=== PATIENT | female | born 1990 | race Caucasian/White ===

== ENCOUNTER 2018-11-12 09:40 | Emergency (ER) | payer SELFPAY ==
[~2018-11-12] VITALS: Ht 170.2 cm; Wt 90.7 kg
[2018-11-12] MEDS ORDERED: DIPHTH,PERTUSS(ACELL),TET TOX 0.5 ML DISP.SYRIN. VAX IM ONE (10:00)
[2018-11-12] MEDS ORDERED: LIDOCAINE 1%/EPI 1:100,000 20 ML VIAL. INJ ONE (10:00)
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
[2018-11-12] MEDS ORDERED: NEOMY/BACITR/POLYMYXIN OINT PACKET. TP ONE (11:35)
[2018-11-12 12:16] VITALS: BP 128/74
== END 2018-11-12 12:37 | disposition home or self-care (01) ==
LOC: ER 09:40
DX: S91.011A Laceration without foreign body, right ankle, initial encounter (principal); Z88.5 Allergy status to narcotic agent; Z88.6 Allergy status to analgesic agent; W22.8XXA Striking against or struck by other objects, initial encounter; Y93.89 Activity, other specified; Y92.89 Other specified places as the place of occurrence of the external cause; Y99.8 Other external cause status
CPT/HCPCS: 12002; 73610; 90471; 90715; 99283; J3490